=== PATIENT | male | born 1945 | race American Indian/Alaskan Native ===

== ENCOUNTER → 2017-01-30 | Outpatient (CLI) | payer OTHER ==
[~2017-01-30] MED LIST: ALBU25PO2 MC; CARDIOTABS; FURO-68 PO; INSU100V31 SQ; INSU100V8 SQ; MAGN200T PO; MULT-246 PO; RUTI1TAB PO; TRAM50TA PO; [UNRECOGNIZED DRUG - CODE] PO; advair; allegra; hydrochlorothiazide; nexium; spironolactone
--- NOTE | 2017-01-30 16:05 | RAD ---
Bilateral lower extremity venous ultrasound, 01/30/2017: History: Leg pain and swelling Duplex evaluation of the deep veins in the lower extremities was performed including grayscale, color-flow and spectral Doppler analysis. The femoral and popliteal veins demonstrate normal compressibility and normal responses to distal augmentation maneuvers. Color imaging of those vessels shows no evidence of intraluminal clot. The visualized deep veins in both calves are patent. IMPRESSION: There is no sonographic evidence of deep vein thrombosis in either lower extremity.
--- NOTE | 2017-01-31 07:39 | CARD ---
APPROVED REPORT EXAM: Two-dimensional and M-mode echocardiogram with Doppler and color Doppler. Other Information Quality : Average Rhythm : NSR with PAC's INDICATION Peripheral Edema 2D DIMENSIONS RVDd3.2 (2.9-3.5cm)Left Atrium(2D)4.2 (1.6-4.0cm) IVSd1.3 (0.7-1.1cm)Aortic Root(2D)3.1 (2.0-3.7cm) LVDd5.4 (3.9-5.9cm)LVOT Diameter2.2 (1.8-2.4cm) PWd1.3 (0.7-1.1cm)LVDs3.3 (2.5-4.0cm) FS (%) 35.0 %SV96.8 ml LVEF(%)65.0 (>50%) Aortic Valve AoV Peak Malcolm.149.1cm/sAoV VTI27.9cm AO Peak GR.8.9mmHgLVOT Peak Malcolm.100.9cm/s LVOT VTI 22.07cmAO Mean GR.5mmHg DIMITRIOS (VMAX)2.78xw6XCJ (VTI)2.88cm2 Mitral Valve MV E Zzhonbmx04.2cm/sMV DECEL [id number] MV A Hsrbermd05.2cm/sMV E Mean Gr.1mmHg MV UJM83reX/A Ratio1.2 MV A [id number] (PHT)3.77cm2 TDI E/Lateral E'10.1E/Medial E'10.8 Pulmonary Valve PV Peak Cxgxcxvz410.8cm/sPV Peak Grad.6mmHg Tricuspid Valve TR P. Jvttwshq646pi/sRAP [id number] TR Peak Gr.66viNjENLE57vmWu LEFT VENTRICLE The left ventricle is normal size. There is borderline concentric left ventricular hypertrophy. Left ventricle systolic function is normal. The Ejection Fraction is 60-65%. There is normal LV segmental wall motion. The left ventricular diastolic function and filling is normal for age. There is no ventr icular septal defect visualized. RIGHT VENTRICLE The right ventricle is normal size. The right ventricular systolic function is normal. ATRIA The left atrium is borderline dilated. The right atrium size is normal. The interatrial septum is int act with no evidence for an atrial septal defect or patent foramen ovale as noted on 2-D or Doppler i maging. AORTIC VALVE The aortic valve is mildly calcified. The aortic valve is trileaflet. Doppler and Color Flow revealed no significant aortic regurgitation. There is no significant aortic valvular stenosis. MITRAL VALVE The mitral valve is normal in structure and function. There is no mitral valve stenosis. Doppler and Color Flow revealed no mitral valve regurgitation noted. TRICUSPID VALVE The tricuspid valve is not well visualized. Doppler and Color Flow revealed trace to mild tricuspid r egurgitation. The PA pressure was estimated at 23 mmHg. There is no tricuspid valve stenosis. PULMONIC VALVE The pulmonic valve is not well visualized. Doppler and Color Flow revealed no pulmonic valvular regur gitation. There is no pulmonic valvular stenosis. GREAT VESSELS The aortic root is normal in size. The ascending aorta is normal in size. The IVC is normal in size a nd collapses >50% with inspiration. PERICARDIAL EFFUSION There is no evidence of significant pericardial effusion. Critical Notification Critical Value: No <Conclusion> Left ventricle systolic function is normal. The Ejection Fraction is 60-65%. Doppler and Color Flow revealed trace to mild tricuspid regurgitation. The PA pressure was estimated at 23 mmHg. There is no evidence of significant pericardial effusion.
== END | disposition home or self-care (01) ==
LOC: ECHO 14:19
PROVIDERS: ATTEND Internal Medicine
DX: I51.7 Cardiomegaly (principal); M79.605 Pain in left leg; M79.604 Pain in right leg; R60.0 Localized edema
CPT/HCPCS: 93306; 93970